=== PATIENT | male | born 1935 | race Caucasian/White ===

== ENCOUNTER 2018-08-08 20:05 | Inpatient (IN) | payer OTHER ==
[~2018-08-08] VITALS: Ht 170.2 cm; Wt 63.1 kg
[2018-08-08 20:14] VITALS: Ht 170.2 cm; Wt 63.1 kg
[2018-08-08 22:08] LABS: BASOPHIL % 0.5 % (0-2); PLATELET COUNT 209 x10^3mcL (130-400)
[2018-08-08] MEDS ORDERED: FINASTERIDE5 M1 PO (22:09)
[2018-08-08] MEDS ORDERED: CARDURA2 MG PO (22:09)
[2018-08-08] MEDS ORDERED: FERROUS SULFAT325 M2 PO (22:11)
[2018-08-08] MEDS ORDERED: CLOPIDOGREL75 M1 PO (22:11)
[2018-08-08 22:14] LABS: CALCIUM 8.2 mg/dL (8.5-10.1); CARBON DIOXIDE 25.8 mmol/L (21-32); CHLORIDE SERUM 103 mmol/L (98-107); CREATININE SERUM 1.3 mg/dL (0.7-1.3); GLUCOSE SERUM 113 mg/dL (74-106); POTASSIUM SERUM 4.2 mmol/L (3.5-5.1); SODIUM SERUM 137 mmol/L (136-145)
[2018-08-08 22:26] LABS: ALBUMIN 3.4 g/dL (3.4-5.0); ALKALINE PHOSPHATASE 63 U/L (46-116); ALT/SGPT 13 U/L (16-63); AST/SGOT 14 U/L (15-37); BILIRUBIN TOTAL 0.5 mg/dL (0.20-1.00); FREE T4 1.19 ng/dL (0.76-1.46); LIPASE 196 IU/L (73-393); TOTAL PROTEIN, SERUM 7.8 g/dL (6.4-8.2)
[2018-08-08 23:50] LABS: microscopic required? YES; urine erythrocyte TRACE (NEGATIVE)
[2018-08-09] VITALS (7 sets, daily range): BP systolic 140–169; BP diastolic 63–88
[2018-08-10 05:31] VITALS: BP 146/69
[2018-08-10 08:35] VITALS: BP 152/68
[2018-08-10 12:01] VITALS: BP 130/63
[2018-08-10 15:38] VITALS: BP 130/63
== END 2018-08-10 17:27 | DRG 308 ==
LOC: ED 20:05 → DU 20:57
PROVIDERS: Emergency Medicine
DX: I44.1 Atrioventricular block, second degree (principal); G93.41 Metabolic encephalopathy; E86.1 Hypovolemia; I10 Essential (primary) hypertension; D53.9 Nutritional anemia, unspecified; R26.2 Difficulty in walking, not elsewhere classified; I73.9 Peripheral vascular disease, unspecified; N40.0 Benign prostatic hyperplasia without lower urinary tract symptoms; Z91.81 History of falling; Z68.21 Body mass index [BMI] 21.0-21.9, adult; Z79.01 Long term (current) use of anticoagulants
CPT/HCPCS: 84439; 97116-GP; 97530-GP; J1650; J7030; Q0092

== ENCOUNTER 2018-08-24 03:20 | Inpatient (IN) | payer OTHER ==
[~2018-08-24] VITALS: Ht 170.2 cm; Wt 65.4 kg
[2018-08-24] VITALS (15 sets, daily range): BP systolic 137–196; BP diastolic 85–108; Ht 170.2 cm; Wt 65.4 kg
[~2018-08-24 03:20] MED LIST: CARDURA2 MG PO; CLOPIDOGREL75 M1 PO; FERROUS SULFAT325 M2 PO; FINASTERIDE5 M1 PO
[2018-08-24 04:06] LABS: BASOPHIL % 0.5 % (0-2); PLATELET COUNT 285 x10^3mcL (130-400)
[2018-08-24 04:10] LABS: RED CELL DISTRIBUTION WIDTH 17.4 % (11.5-14.5)
[2018-08-24 04:13] LABS: CALCIUM 8.3 mg/dL (8.5-10.1); CARBON DIOXIDE 17.9 mmol/L (21-32); CHLORIDE SERUM 104 mmol/L (98-107); GLUCOSE SERUM 232 mg/dL (74-106); POTASSIUM SERUM 4.1 mmol/L (3.5-5.1); SODIUM SERUM 140 mmol/L (136-145)
[2018-08-24 04:18] LABS: ALKALINE PHOSPHATASE 92 U/L (46-116); AST/SGOT 52 U/L (15-37); CHOLESTEROL 161 mg/dL (<200); HDL CHOLESTEROL 55 mg/dL (40-60); TOTAL PROTEIN, SERUM 7.7 g/dL (6.4-8.2)
[2018-08-24 04:42] LABS: ALT/SGPT 18 U/L (16-63)
[2018-08-24 04:43] LABS: ALBUMIN 2.8 g/dL (3.4-5.0)
[2018-08-24 08:19] LABS: CARBON DIOXIDE 21.2 mmol/L (21-32); CHLORIDE SERUM 104 mmol/L (98-107); CREATININE SERUM 1.7 mg/dL (0.7-1.3); GLUCOSE SERUM 187 mg/dL (74-106); POTASSIUM SERUM 3.8 mmol/L (3.5-5.1); SODIUM SERUM 136 mmol/L (136-145)
[2018-08-24 08:49] LABS: PLATELET COUNT 251 x10^3mcL (130-400); RED CELL DISTRIBUTION WIDTH 17.5 % (11.5-14.5)
[2018-08-24 10:27] LABS: BAND NEUTROPHIL 1 % (0-10); BASOPHIL 0 % (0-2); MONOCYTE 2 % (0-7); SEGMENTED NEUTROPHILS 97 % (37-75)
[2018-08-24 10:28] LABS: PLATELET MORPHOLOGY PLATELETS NORMAL; ovalocyte/elliptocyte 2+; rbc morphology (normal/abnorm) ABNORMAL (NORMAL)
[2018-08-24 15:43] LABS: UA SPECIFIC GRAVITY >=1.030 (1.005-1.035); microscopic required? YES; urine erythrocyte 1+ (NEGATIVE)
[2018-08-25] VITALS (16 sets, daily range): BP systolic 125–160; BP diastolic 64–94
[2018-08-25 06:05] LABS: PLATELET COUNT 223 x10^3mcL (130-400)
[2018-08-25 06:08] LABS: RED CELL DISTRIBUTION WIDTH 17.2 % (11.5-14.5)
[2018-08-25 06:16] LABS: ALBUMIN 2.4 g/dL (3.4-5.0); ALKALINE PHOSPHATASE 86 U/L (46-116); ALT/SGPT 27 U/L (16-63); AST/SGOT 80 U/L (15-37); BILIRUBIN TOTAL 0.48 mg/dL (0.20-1.00); CALCIUM 7.5 mg/dL (8.5-10.1); CARBON DIOXIDE 21.3 mmol/L (21-32); CHLORIDE SERUM 107 mmol/L (98-107); GLUCOSE SERUM 146 mg/dL (74-106); POTASSIUM SERUM 4.3 mmol/L (3.5-5.1); SODIUM SERUM 139 mmol/L (136-145); TOTAL PROTEIN, SERUM 6.2 g/dL (6.4-8.2)
[2018-08-26] VITALS (17 sets, daily range): BP systolic 131–152; BP diastolic 68–83
[2018-08-26 04:53] LABS: BASOPHIL % 0.4 % (0-2); PLATELET COUNT 209 x10^3mcL (130-400)
[2018-08-26 04:55] LABS: RED CELL DISTRIBUTION WIDTH 17.9 % (11.5-14.5)
[2018-08-26 05:06] LABS: ALKALINE PHOSPHATASE 82 U/L (46-116); ALT/SGPT 27 U/L (16-63); AST/SGOT 41 U/L (15-37); BILIRUBIN TOTAL 0.38 mg/dL (0.20-1.00); CALCIUM 7.5 mg/dL (8.5-10.1); CARBON DIOXIDE 20.7 mmol/L (21-32); CHLORIDE SERUM 112 mmol/L (98-107); CREATININE SERUM 1.9 mg/dL (0.7-1.3); GLUCOSE SERUM 110 mg/dL (74-106); MAGNESIUM 2.3 mg/dL (1.8-2.4); PHOSPHOROUS 3.6 mg/dL (2.5-4.9); SODIUM SERUM 142 mmol/L (136-145)
[2018-08-26 05:07] LABS: ALBUMIN 2.3 g/dL (3.4-5.0)
[2018-08-27] VITALS (13 sets, daily range): BP systolic 114–178; BP diastolic 72–95
[2018-08-27 05:14] LABS: BASOPHIL % 0.4 % (0-2); PLATELET COUNT 203 x10^3mcL (130-400)
[2018-08-27 05:16] LABS: RED CELL DISTRIBUTION WIDTH 17.5 % (11.5-14.5)
[2018-08-27 05:31] LABS: ALKALINE PHOSPHATASE 81 U/L (46-116); ALT/SGPT 23 U/L (16-63); AST/SGOT 27 U/L (15-37); BILIRUBIN TOTAL 0.4 mg/dL (0.20-1.00); CALCIUM 7.5 mg/dL (8.5-10.1); CARBON DIOXIDE 25.3 mmol/L (21-32); CHLORIDE SERUM 108 mmol/L (98-107); CREATININE SERUM 1.8 mg/dL (0.7-1.3); GLUCOSE SERUM 101 mg/dL (74-106); MAGNESIUM 2.2 mg/dL (1.8-2.4); POTASSIUM SERUM 3.5 mmol/L (3.5-5.1); SODIUM SERUM 141 mmol/L (136-145)
[2018-08-27 05:37] LABS: ALBUMIN 2.4 g/dL (3.4-5.0); TOTAL PROTEIN, SERUM 6.1 g/dL (6.4-8.2)
[2018-08-28] VITALS (9 sets, daily range): BP systolic 139–185; BP diastolic 74–107
[2018-08-28 09:33] LABS: PLATELET COUNT 263 x10^3mcL (130-400)
[2018-08-28 09:36] LABS: BASOPHIL % 0 % (0-2); RED CELL DISTRIBUTION WIDTH 17.5 % (11.5-14.5)
[2018-08-28 09:52] LABS: ALBUMIN 3.1 g/dL (3.4-5.0); ALKALINE PHOSPHATASE 105 U/L (46-116); ALT/SGPT 30 U/L (16-63); AST/SGOT 34 U/L (15-37); BILIRUBIN TOTAL 0.8 mg/dL (0.20-1.00); CALCIUM 8.3 mg/dL (8.5-10.1); CARBON DIOXIDE 25.5 mmol/L (21-32); CHLORIDE SERUM 105 mmol/L (98-107); GLUCOSE SERUM 116 mg/dL (74-106); SODIUM SERUM 140 mmol/L (136-145); TOTAL PROTEIN, SERUM 7.5 g/dL (6.4-8.2)
[2018-08-29] VITALS (7 sets, daily range): BP systolic 144–181; BP diastolic 65–88
[2018-08-29 06:11] LABS: PLATELET COUNT 280 x10^3mcL (130-400)
[2018-08-29 06:33] LABS: ALKALINE PHOSPHATASE 92 U/L (46-116); ALT/SGPT 28 U/L (16-63); AST/SGOT 29 U/L (15-37); BILIRUBIN TOTAL 0.76 mg/dL (0.20-1.00); CALCIUM 8.4 mg/dL (8.5-10.1); CARBON DIOXIDE 25.9 mmol/L (21-32); CHLORIDE SERUM 108 mmol/L (98-107); CREATININE SERUM 2.2 mg/dL (0.7-1.3); GLUCOSE SERUM 136 mg/dL (74-106); MAGNESIUM 2.4 mg/dL (1.8-2.4); PHOSPHOROUS 4.5 mg/dL (2.5-4.9); POTASSIUM SERUM 4.7 mmol/L (3.5-5.1); SODIUM SERUM 144 mmol/L (136-145); TOTAL PROTEIN, SERUM 7.6 g/dL (6.4-8.2)
[2018-08-29 06:42] LABS: ALBUMIN 2.9 g/dL (3.4-5.0)
[2018-08-29 07:20] LABS: RED CELL DISTRIBUTION WIDTH 17.6 % (11.5-14.5)
[2018-08-29 08:49] LABS: MONOCYTE 5 % (0-7); SEGMENTED NEUTROPHILS 81 % (37-75)
[2018-08-29 08:50] LABS: BAND NEUTROPHIL 8 % (0-10); BASOPHIL 0 % (0-2); ovalocyte/elliptocyte 1+; rbc morphology (normal/abnorm) ABNORMAL (NORMAL)
[2018-08-29 08:51] LABS: PLATELET MORPHOLOGY PLATELETS NORMAL
[2018-08-30 05:22] VITALS: BP 131/74
[2018-08-30 06:32] LABS: BASOPHIL % 0.2 % (0-2); PLATELET COUNT 252 x10^3mcL (130-400)
[2018-08-30 06:47] LABS: ALKALINE PHOSPHATASE 74 U/L (46-116); ALT/SGPT 22 U/L (16-63); AST/SGOT 21 U/L (15-37); BILIRUBIN TOTAL 0.65 mg/dL (0.20-1.00); CALCIUM 8.2 mg/dL (8.5-10.1); CARBON DIOXIDE 25.5 mmol/L (21-32); CHLORIDE SERUM 109 mmol/L (98-107); GLUCOSE SERUM 113 mg/dL (74-106); MAGNESIUM 2.3 mg/dL (1.8-2.4); PHOSPHOROUS 3.4 mg/dL (2.5-4.9); POTASSIUM SERUM 4.3 mmol/L (3.5-5.1); SODIUM SERUM 143 mmol/L (136-145); TOTAL PROTEIN, SERUM 6.6 g/dL (6.4-8.2)
[2018-08-30 06:48] LABS: RED CELL DISTRIBUTION WIDTH 17.3 % (11.5-14.5)
[2018-08-30 07:06] LABS: ALBUMIN 2.6 g/dL (3.4-5.0)
[2018-08-30 09:10] VITALS: BP 139/70
[2018-08-30] MEDS ORDERED: LIPITOR80 MG PO (09:53)
[2018-08-30] MEDS ORDERED: IMD60 PO (09:54)
[2018-08-30] MEDS ORDERED: ZES5 PO (09:54)
[2018-08-30] MEDS ORDERED: COR3 PO (09:54)
[2018-08-30] MEDS ORDERED: APR25 NG (09:54)
[2018-08-30] MEDS ORDERED: BAY PO (09:54)
[2018-08-30] MEDS ORDERED: L20I PO (09:55)
[2018-08-30] MEDS ORDERED: ELIQUIS2.5 MG PO (10:04)
[2018-08-30 12:24] VITALS: BP 153/77
[2018-08-30 17:21] VITALS: BP 165/84
[2018-08-30 20:29] VITALS: BP 146/87
[2018-08-31 05:10] VITALS: BP 149/71
[2018-08-31 07:15] LABS: PLATELET COUNT 221 x10^3mcL (130-400)
[2018-08-31 07:22] LABS: BASOPHIL % 0 % (0-2); RED CELL DISTRIBUTION WIDTH 17.2 % (11.5-14.5)
[2018-08-31 07:59] LABS: ALKALINE PHOSPHATASE 70 U/L (46-116); ALT/SGPT 20 U/L (16-63); AST/SGOT 21 U/L (15-37); BILIRUBIN TOTAL 0.6 mg/dL (0.20-1.00); CALCIUM 8.2 mg/dL (8.5-10.1); CARBON DIOXIDE 26.7 mmol/L (21-32); CHLORIDE SERUM 109 mmol/L (98-107); CREATININE SERUM 1.8 mg/dL (0.7-1.3); GLUCOSE SERUM 99 mg/dL (74-106); MAGNESIUM 2.4 mg/dL (1.8-2.4); PHOSPHOROUS 3.1 mg/dL (2.5-4.9); POTASSIUM SERUM 3.9 mmol/L (3.5-5.1); SODIUM SERUM 144 mmol/L (136-145); TOTAL PROTEIN, SERUM 6.4 g/dL (6.4-8.2)
[2018-08-31 08:02] LABS: ALBUMIN 2.7 g/dL (3.4-5.0)
[2018-08-31 08:59] VITALS: BP 155/76
[2018-08-31 12:50] VITALS: BP 118/70
== END 2018-08-31 18:22 | DRG 208 ==
LOC: ED 03:20 → DU 05:30 → IC 05:30 → DU 08-28 11:14
PROVIDERS: Emergency Medicine; Internal Medicine Pulmonary Disease
PROC: 5A1945Z Respiratory Ventilation, 24-96 Consecutive Hours (ICD-10-PCS; principal; 2018-08-24)
PROC: 0BH17EZ Insertion of Endotracheal Airway into Trachea, Via Natural or Artificial Opening (ICD-10-PCS; 2018-08-24)
DX: J12.89 Other viral pneumonia (principal); J96.01 Acute respiratory failure with hypoxia; I21.4 Non-ST elevation (NSTEMI) myocardial infarction; I50.23 Acute on chronic systolic (congestive) heart failure; J81.0 Acute pulmonary edema; N17.9 Acute kidney failure, unspecified; E87.2 Acidosis; I48.92 Unspecified atrial flutter; Z68.1 Body mass index [BMI] 19.9 or less, adult; J10.08 Influenza due to other identified influenza virus with other specified pneumonia; I48.0 Paroxysmal atrial fibrillation; I44.1 Atrioventricular block, second degree; I12.9 Hypertensive chronic kidney disease with stage 1 through stage 4 chronic kidney disease, or unspecified chronic kidney disease; N18.9 Chronic kidney disease, unspecified; N40.0 Benign prostatic hyperplasia without lower urinary tract symptoms; Z66 Do not resuscitate
CPT/HCPCS: 36600; 87804; 97110-GP; 97116-GP; 97530-GP; A4628; J0456; J0696; J1650; J1940; J2270; J2543; J2704; J2920; J2930; J3370; J3490; J7030; J7040; J7613; J7620; Q0092